=== PATIENT | female | born 1950 | race Two or more races ===

== ENCOUNTER 2020-09-18 10:50 | Day surgery (SDC) | payer MEDICARE ==
[~2020-09-18] VITALS: Ht 162.6 cm; Wt 92.1 kg
[2020-09-18] MEDS ORDERED: THYR60 PO (11:16)
[2020-09-18] MEDS ORDERED: MONT10T (11:16)
[2020-09-18] MEDS ORDERED: Primidone50 MG PO (11:17)
--- NOTE | 2020-09-18 14:45 | NUR ---
09/18/20 1445 Janeth Chase PT STATES NARCOTICS CAUSE HER TO HAVE NAUSEA. DR. CORTES CALLED, PRESCRIPTION FOR ZOFRAN PROVIDED. RN TO CALL PRESCRIPTION IN TO PT'S PHARMACY.
== END 2020-09-18 14:40 | disposition home or self-care (01) ==
LOC: ORSCSDS 10:50
DX: S82.841A Displaced bimalleolar fracture of right lower leg, initial encounter for closed fracture (principal); E03.9 Hypothyroidism, unspecified; J45.909 Unspecified asthma, uncomplicated; Z79.899 Other long term (current) drug therapy; E66.9 Obesity, unspecified; Z68.34 Body mass index [BMI] 34.0-34.9, adult
CPT/HCPCS: C1713; C1769; J0171; J0690; J1100; J1885; J2250; J2405; J2704; J3010; J7120

== ENCOUNTER 2021-09-01 11:58 | Day surgery (SDC) | payer MEDICARE ==
[~2021-09-01] VITALS: Ht 162.6 cm; Wt 92.7 kg
[~2021-09-01 11:58] MED LIST: MONT10T; Primidone50 MG PO; THYR60 PO
[2021-09-01] MEDS ORDERED: Flonase 0.05% N16 GM (12:26)
--- NOTE | 2021-09-01 13:16 | NUR ---
09/01/21 1316 Christopher Barlow 0.25 ML'S EPI ADDED TO 50 ML'S 0.5% MARCAINE TO ACHIEVE SOLUTION OF 0.5% MARCAINE WITH EPI 1:200,000.
--- NOTE | 2021-09-01 13:47 | NUR ---
09/01/21 1347 Carolyn Bustos 1343 SATS 96% RA WHEN COMING OUT FROM OR. PT. THEN DOZING & SATS DOWN TO 86% RA. PT. ENC. TO TAKE DEEP BREATHS, O2 AT 15L VIA FACE TENT APPLIED. SATS UPTO 97% VIA FACE TENT AT 1345. PT. DENIES PAIN. PT. WITH GOOD CAP REFILL TO ALL TOES ON RIGHT FOOT. PT. WITH BOOT INTACT.
--- NOTE | 2021-09-01 14:24 | NUR ---
09/01/21 1424 Carolyn Bustos WHEN ASKED PT. IF SHE HAD ANY PAIN, PT. STATES "A LITTLE ACHY. IT'S OK." PT. DENIED NEEDING ANYTHING FOR PAIN.
== END 2021-09-01 15:01 | disposition home or self-care (01) ==
LOC: ORSCSDS 11:58
PROVIDERS: Podiatrist Foot & Ankle Surgery
PROC: 0QPG04Z Removal of Internal Fixation Device from Right Tibia, Open Approach (ICD-10-PCS; principal; 2021-09-01 13:30)
DX: T84.84XA Pain due to internal orthopedic prosthetic devices, implants and grafts, initial encounter (principal); E03.9 Hypothyroidism, unspecified; J45.909 Unspecified asthma, uncomplicated; K21.9 Gastro-esophageal reflux disease without esophagitis; E66.9 Obesity, unspecified; Z68.35 Body mass index [BMI] 35.0-35.9, adult; Z79.899 Other long term (current) drug therapy
CPT/HCPCS: J0171; J0690; J1100; J1885; J2405; J2704; J3010; J7120